=== PATIENT | male | born 1965 | race Caucasian/White ===

== ENCOUNTER 2017-02-13 23:59 | Emergency (ER) | payer OTHER ==
[~2017-02-13] VITALS: Ht 190.5 cm; Wt 133.8 kg
[~2017-02-13 23:59] MED LIST: ACETAMINOPHEN-1 EAC1 ORAL; ASPIR-LOW81 MG PO; ASPIRIN325 MG ORAL; CLINDAMYCIN HC300 MG ORAL; COLCHICINE0.6 MG ORAL; COUMADIN5 MG ORAL; FISH OIL500 M2 PO; FISH OIL500 MG PO; FUROSEMIDE20 M1 ORAL; IBUPROFEN600 MG ORAL; IMDUR60 MG ORAL; ISOSORBIDE DINI30 MG PO; LASIX20 MG PO; LISINOPRIL10 MG ORAL; LORTAB 5-500 T1 EACH PO; METOPROLOL TART25 MG ORAL; METOPROLOL TART50 MG PO; PEPCID40 MG PO; PERCOCET 5-3251 EACH ORAL; PLAVIX75 MG ORAL; PLAVIX75 MG PO; SIMVASTATIN20 MG PO; SIMVASTATIN40 MG ORAL; VALIUM10 MG ORAL; WARFARIN SODIUM5 MG ORAL
--- NOTE | 2017-02-14 00:42 | Emergency Room Report ---
History of Present Illness General Chief Complaint: Pain Source: Patient Present Illness HPI Patient presents with complaints of sharp shooting pain in both of his feet Reports the discomfort started on Monday while talking to the patient He had several episodes where he has a sharp pain that shoots from the lopez on the left foot down to the toes He feels that there is some minimal swelling in both of his ankles Denies any fevers or chills Denies any trauma Denies any chest pain or short of breath Allergies: Coded Allergies: TRAMADOL HCL (Verified Allergy, Severe, rash, 02/02/13) TRAMADOL (Unverified Allergy, 06/07/13) Patient History Past Medical History: see triage record Pertinent Family History: none Reviewed Nursing Documentation: PMH: Agreed, PSxH: Agreed Nursing Documentation-PMH Past Medical History: No History, Except For Hx Cardiac Problems: Yes - [place] TIMES 2 Hx Hypertension: No Hx Asthma: No Review of Systems All Other Systems: negative except mentioned in HPI Physical Exam Vital Signs Date Time Temp Pulse Resp B/P Pulse Ox O2 Delivery O2 Flow Rate FiO2 02/14/17 00:13 99.1 93 16 124/80 96 Room Air Sp02 EP Interpretation: reviewed, normal General Appearance: no apparent distress Head: normocephalic, atraumatic Eyes: bilateral eye EOMI, bilateral eye PERRL ENT: normal pharynx, no angioedema Neck: supple Respiratory: lungs clear Cardiovascular #1: regular rate, rhythm, no edema Gastrointestinal: non tender, soft Musculoskeletal: other - No obvious swelling clinically in the lower extremity , foot is warm to touch bilaterally, does not appear cool, palpable pulses are equal bilaterally dorsally on the feet, no obvious calf swelling or discomfort Neurologic: alert, oriented x3, responsive Skin: no rash, warm/dry Lymphatic: no adenopathy Medical Decision Making Diagnostic Impression: Primary Impression: Peripheral neuropathy ER Course Multiple differentials considered Including but not limited to vascular, electrolytes, infectious pathology Patient's potassium level is appropriate White blood cell count is mildly elevated patient however has had previous elevated white blood cell count as well No signs of any cellulitis at this time Patient did better with acute intervention Also appears to be likely borderline diabetic And requires close outpatient followup Labs Test 02/14/17 00:47 White Blood Count 16.2 K/UL (4.8-10.8) Red Blood Count 4.97 M/UL (4.70-6.10) Hemoglobin 15.2 G/DL (14.2-18.0) Hematocrit 44.0 % (42.0-52.0) Mean Corpuscular Volume 89 FL (80-99) Mean Corpuscular Hemoglobin 30.6 PG (27.0-31.0) Mean Corpuscular Hemoglobin Concent 34.5 G/DL (32.0-36.0) Red Cell Distribution Width 12.4 % (11.6-14.8) Platelet Count 266 K/UL (150-450) Mean Platelet Volume 6.3 FL (6.5-10.1) Neutrophils (%) (Auto) 64.1 % (45.0-75.0) Lymphocytes (%) (Auto) 27.7 % (20.0-45.0) Monocytes (%) (Auto) 6.0 % (1.0-10.0) Eosinophils (%) (Auto) 1.2 % (0.0-3.0) Basophils (%) (Auto) 1.0 % (0.0-2.0) Sodium Level 136 mEQ/L (135-145) Potassium Level 4.1 mEQ/L (3.4-4.9) Chloride Level 96 mEQ/L (98-107) Carbon Dioxide Level 22 mEQ/L (20-30) Anion Gap 18 (5-15) Blood Urea Nitrogen 16 mg/dL (7-23) Creatinine 1.4 mg/dL (0.7-1.2) Estimat Glomerular Filtration Rate 53.9 mL/min (>60) Glucose Level 206 mg/dL (74-106) Calcium Level 9.3 mg/dL (8.6-10.2) Total Bilirubin < 0.2 mg/dL (0.0-1.2) Aspartate Amino Transf (AST/SGOT) 13 U/L (5-40) Alanine Aminotransferase (ALT/SGPT) 17 U/L (3-41) Alkaline Phosphatase 87 U/L (40-129) Total Protein 7.2 g/dL (6.6-8.7) Albumin 4.1 g/dL (3.5-5.2) Globulin 3.1 g/dL Albumin/Globulin Ratio 1.3 (1.0-2.7) Last Vital Signs Date Time Temp Pulse Resp B/P Pulse Ox O2 Delivery O2 Flow Rate FiO2 02/14/17 00:13 99.1 93 16 124/80 96 Room Air Status: improved Disposition: HOME, SELF-CARE Condition: Improved Scripts Gabapentin* (NEURONTIN*) 600 Mg Tablet 600 MG ORAL EVERY 12 HOURS, #12 TAB Prov: CELESTE NGUYEN D.O. 02/14/17 Acetaminophen With Codeine (T#3) (TYLENOL #3 TAB*) Y Tab 1 TAB ORAL Q8H Y for For Pain, #10 TAB Prov: CELESTE NGUYEN D.O. 02/14/17 Additional Instructions: Patient is provided with the discharge instructions notified to follow up with primary doctor in the next 2-3 days otherwise return to the er with any worsening symptoms. Please note that this report is being documented using [employer] technology. This can lead to erroneous entry secondary to incorrect interpretation by the dictating instrument. CELESTE NGUYEN D.O. Feb 14, 2017 00:42
[2017-02-14] MEDS ORDERED: Norco 10mg/325mg tab ORAL ONE (00:45)
[2017-02-14 01:12] LABS: EOSINOPHILS % (AUTO) 1.2 % (0.0-3.0); LYMPHOCYTES % (AUTO) 27.7 % (20.0-45.0); MEAN CORPUSCULAR HEMOGLOBIN 30.6 PG (27.0-31.0); MEAN CORPUSCULAR HGB CONC 34.5 G/DL (32.0-36.0); MEAN CORPUSCULAR VOLUME 89 FL (80-99); MEAN PLATELET VOLUME 6.3 FL (6.5-10.1); NEUTROPHILS % (AUTO) 64.1 % (45.0-75.0); PLATELET COUNT 266 K/UL (150-450); RED BLOOD COUNT 4.97 M/UL (4.70-6.10); RED CELL DISTRIBUTION WIDTH 12.4 % (11.6-14.8); WHITE BLOOD COUNT 16.2 K/UL (4.8-10.8)
[2017-02-14 01:33] LABS: ALANINE AMINOTRANSFERASE 17 U/L (3-41); ALBUMIN/GLOBULIN RATIO 1.3 (1.0-2.7); ANION GAP 18 (5-15); CALCIUM 9.3 mg/dL (8.6-10.2); CARBON DIOXIDE 22 mEQ/L (20-30); CHLORIDE 96 mEQ/L (98-107); CREATININE 1.4 mg/dL (0.7-1.2); GLOMERULAR FILTRATION RATE 53.9 mL/min (>60); HEMOLYSIS 18; POTASSIUM 4.1 mEQ/L (3.4-4.9); SODIUM 136 mEQ/L (135-145); TOTAL PROTEIN 7.2 g/dL (6.6-8.7)
[2017-02-14 01:42] LABS: ASPARTATE AMINO TRANSFERASE 13 U/L (5-40)
[2017-02-14 02:05] VITALS: BP 149/95
[2017-02-14] MEDS ORDERED: ACETAMINOPHEN-1 EAC1 ORAL (02:11)
[2017-02-14] MEDS ORDERED: NEURONTIN600 MG ORAL (02:11)
[2017-02-14 03:02] VITALS: BP 149/95
== END 2017-02-14 03:04 | disposition home or self-care (01) ==
LOC: EMR 02-14 01:56
DX: G62.9 Polyneuropathy, unspecified (principal); M25.571 Pain in right ankle and joints of right foot; Z88.6 Allergy status to analgesic agent; I25.2 Old myocardial infarction
CPT/HCPCS: 36415; 80053; 85025; 99284

== ENCOUNTER 2018-03-19 04:29 | Emergency (ER) | payer OTHER ==
[~2018-03-19] VITALS: Ht 190.5 cm; Wt 136.1 kg
[~2018-03-19 04:29] MED LIST changes: +NEURONTIN600 MG ORAL
[2018-03-19] MEDS ORDERED: DiphenhydrAMINE 50mg/ml Inj IVP ONE (05:00)
[2018-03-19] MEDS ORDERED: Metoclopramide 10mg/2ml Inj IVP ONE (05:00)
[2018-03-19] MEDS ORDERED: Ketorolac 30mg Inj IV ONE (05:00)
[2018-03-19 06:09] LABS: BASOPHILS % (AUTO) 0.7 % (0.0-2.0); EOSINOPHILS % (AUTO) 2.2 % (0.0-3.0); HEMATOCRIT 46.6 % (42.0-52.0); LYMPHOCYTES % (AUTO) 31.4 % (20.0-45.0); MEAN CORPUSCULAR VOLUME 88 FL (80-99); MONOCYTES % (AUTO) 7.3 % (1.0-10.0); NEUTROPHILS % (AUTO) 58.5 % (45.0-75.0); PLATELET COUNT 283 K/UL (150-450); RED BLOOD COUNT 5.27 M/UL (4.70-6.10); RED CELL DISTRIBUTION WIDTH 12.1 % (11.6-14.8); WHITE BLOOD COUNT 12.9 K/UL (4.8-10.8)
[2018-03-19 06:21] LABS: ANION GAP 10 mmol/L (5-15); BLOOD UREA NITROGEN 18 mg/dL (7-18); CARBON DIOXIDE 26 MMOL/L (21-32); CHLORIDE 102 MMOL/L (98-107); CREATININE 1.6 MG/DL (0.55-1.30); POTASSIUM 4.2 MMOL/L (3.5-5.1); SODIUM 138 MMOL/L (136-145)
[2018-03-19 06:22] LABS: INR 0.9 (0.9-1.1)
[2018-03-19 06:32] LABS: ALANINE AMINOTRANSFERASE 36 U/L (12-78); ALBUMIN/GLOBULIN RATIO 1.1 (1.0-2.7); ALKALINE PHOSPHATASE 68 U/L (46-116); ASPARTATE AMINO TRANSFERASE 12 U/L (15-37); BILIRUBIN,TOTAL 0.3 MG/DL (0.2-1.0); CREATINE KINASE 70 U/L (26-308)
--- NOTE | 2018-03-19 06:37 | Emergency Room Report ---
History of Present Illness General Chief Complaint: Headache Source: Patient Present Illness HPI Patient presents with 2 weeks of left-sided headache. He feels it in the yazidism area. It's severe at this time. He was evaluated in [address] of his head. He doesn't remember if it was for headache. The pain is 10/10, throbbing, some radiation towards L eye and neck, constant. He wants to cut that area of his head out with a knife. The patient has chronic pain condition. He took at 10/325 Cushing at 7:30 PM. Apparently this is the last Cushing that he had. Denies fever, sore throat, change in vision, diarrhea. He has some nausea but no vomiting. No rashes (some sunburn to scalp). No chest pain, dyspnea, cough. No dysuria. He had chronic pain in his neck and back and is in pain management. Patient is diabetic and states glucose has been fairly well controlled. Allergies: Coded Allergies: TRAMADOL HCL (Verified Allergy, Severe, rash, 02/02/13) KETOROLAC (Verified Allergy, Unknown, 03/19/18) hives TRAMADOL (Unverified Allergy, Unknown, 03/19/18) Patient History Past Medical History: see triage record Social History: Reports: smoking Social History Narrative from home Reviewed Nursing Documentation: PMH: Agreed; PSxH: Agreed Nursing Documentation-PMH Hx Cardiac Problems: Yes - [place] TIMES 2 Hx Hypertension: No Hx Asthma: No Hx Diabetes: Yes Review of Systems All Other Systems: negative except mentioned in HPI Physical Exam Vital Signs Date Time Temp Pulse Resp B/P (MAP) Pulse Ox O2 Delivery O2 Flow Rate FiO2 03/19/18 04:33 98.5 100 18 117/75 98 Room Air 98.4 Sp02 EP Interpretation: reviewed, normal General Appearance: well appearing, no apparent distress, GCS 15 Head: normocephalic, other - L temporal area tenderness Eyes: bilateral eye normal inspection, bilateral eye PERRL, bilateral eye EOMI ENT: moist mucus membranes Neck: supple Respiratory: lungs clear, normal breath sounds Cardiovascular #1: regular rate, rhythm, other - Tender temporal area Cardiovascular #2: 2+ radial (R) Gastrointestinal: normal inspection, normal bowel sounds, non tender, no mass, non-distended Musculoskeletal: back normal, gait/station normal, normal range of motion Neurologic: alert, oriented x3, wet end supervisor III-XII nml as tested, motor strength/tone normal, DTRs symmetric, sensory intact, cerebellar normal, normal gait, speech normal Psychiatric: anxious - Pressured Skin: normal inspection, warm/dry Lymphatic: normal inspection Medical Decision Making Diagnostic Impression: Primary Impression: Cephalgia Qualified Codes: R51 - Headache Additional Impression: Diabetes Qualified Codes: E11.8 - Type 2 diabetes mellitus with unspecified complications ER Course Patient presents with headache and left temporal pain. Differential includes temporal arteritis, migraine, tension headache, opiate dependence amongst others. Patient has comorbidities and evaluation will be with EKG, chest x-ray and labs including sedimentation rate. His exam is nonfocal at this time. It is been 13 days. He has a previous CAT scan in 2013 that was normal. Patient observed drifting off to sleep after initial treatment. EKG with NSSTTW changes c/w LVH. Labs with sl elevated WBC and normal ESR. Glucose slightly elevated. Discussed possibility of CT with Dr. Calix. Signed out to Dr. Calix. Laboratory Tests Test 03/19/18 05:45 03/19/18 06:02 White Blood Count 12.9 K/UL (4.8-10.8) H Red Blood Count 5.27 M/UL (4.70-6.10) Hemoglobin 16.0 G/DL (14.2-18.0) Hematocrit 46.6 % (42.0-52.0) Mean Corpuscular Volume 88 FL (80-99) Mean Corpuscular Hemoglobin 30.3 PG (27.0-31.0) Mean Corpuscular Hemoglobin Concent 34.3 G/DL (32.0-36.0) Red Cell Distribution Width 12.1 % (11.6-14.8) Platelet Count 283 K/UL (150-450) Mean Platelet Volume 6.4 FL (6.5-10.1) L Neutrophils (%) (Auto) 58.5 % (45.0-75.0) Lymphocytes (%) (Auto) 31.4 % (20.0-45.0) Monocytes (%) (Auto) 7.3 % (1.0-10.0) Eosinophils (%) (Auto) 2.2 % (0.0-3.0) Basophils (%) (Auto) 0.7 % (0.0-2.0) Erythrocyte Sedimentation Rate 12 MM/HR (0-15) Prothrombin Time 9.7 SEC (9.30-11.50) Prothrombin Time INR 0.9 (0.9-1.1) PTT 25 SEC (23-33) Sodium Level 138 MMOL/L (136-145) Potassium Level 4.2 MMOL/L (3.5-5.1) Chloride Level 102 MMOL/L (98-107) Carbon Dioxide Level 26 MMOL/L (21-32) Anion Gap 10 mmol/L (5-15) Blood Urea Nitrogen 18 mg/dL (7-18) Creatinine 1.6 MG/DL (0.55-1.30) H Estimate Glomerular Filtration Rate 46.0 mL/min (>60) Glucose Level 283 MG/DL (74-106) H Calcium Level 9.0 MG/DL (8.5-10.1) Total Bilirubin 0.3 MG/DL (0.2-1.0) Aspartate Amino Transferase (AST) 12 U/L (15-37) L Alanine Aminotransferase (ALT) 36 U/L (12-78) Alkaline Phosphatase 68 U/L (46-116) Total Creatine Kinase 70 U/L (26-308) Troponin I 0.000 ng/mL (0.000-0.056) Pro-B-Type Natriuretic Peptide 88 pg/mL (0-125) Total Protein 7.7 G/DL (6.4-8.2) Albumin 4.0 G/DL (3.4-5.0) Globulin 3.7 g/dL Albumin/Globulin Ratio 1.1 (1.0-2.7) Urine Color Pale yellow Urine Appearance Clear Urine pH 5 (4.5-8.0) Urine Specific [place] 1.015 (1.005-1.035) Urine Protein Negative (NEGATIVE) Urine Glucose (UA) 4+ (NEGATIVE) H Urine Ketones Negative (NEGATIVE) Urine Occult Blood Negative (NEGATIVE) Urine Nitrite Negative (NEGATIVE) Urine Bilirubin Negative (NEGATIVE) Urine Urobilinogen Normal MG/DL (0.0-1.0) Urine Leukocyte Esterase Negative (NEGATIVE) Urine Opiates Screen Positive (NEGATIVE) H Urine Barbiturates Screen Negative (NEGATIVE) Phencyclidine (PCP) Screen Negative (NEGATIVE) Urine Amphetamines Screen Negative (NEGATIVE) Urine Benzodiazepines Screen Negative (NEGATIVE) Urine Cocaine Screen Negative (NEGATIVE) Urine Marijuana (THC) Screen Negative (NEGATIVE) EKG Diagnostic Results Rate: normal Rhythm: NSR ST Segments: other - LVH Rhythm Strip Diag. Results EP Interpretation: yes Rhythm: NSR, no PVC's, no ectopy Chest X-Ray Diagnostic Results Chest X-Ray Diagnostic Results : Chest X-Ray Ordered: Yes # of Views/Limited/Complete: 1 View Indication: Other EP Interpretation: Yes Interpretation: no consolidation, no effusion, no pneumothorax Impression: Other Electronically Signed by: Electronically signed by Tiburcio Barry MD Last Vital Signs Date Time Temp Pulse Resp B/P (MAP) Pulse Ox O2 Delivery O2 Flow Rate FiO2 03/19/18 08:58 78 18 124/79 100 Room Air 03/19/18 07:50 98.5 Status: improved Disposition: HOME, SELF-CARE Condition: Improved Scripts Acetamin/Butalbital/Caffeine* (FIORICET*) 1 Ea Tab 1 TAB ORAL Q6H, #15 TAB 0 Refills Prov: Contreras Calix MD 03/19/18 Referrals: [facility],REFERRING (PCP) Tiburcio Barry M.D. Mar 19, 2018 06:37
[2018-03-19 06:56] LABS: APPEARANCE,URINE CLEAR; BILIRUBIN, URINE NEGATIVE (NEGATIVE); COLOR,URINE PALE YELLOW; GLUCOSE, URINE (UA) 4+ (NEGATIVE); KETONES,URINE NEGATIVE (NEGATIVE); LEUKOCYTE ESTERASE ,URINE NEGATIVE (NEGATIVE); NITRITE,URINE NEGATIVE (NEGATIVE); PH,URINE 5 (4.5-8.0); PROTEIN,URINE NEGATIVE (NEGATIVE); UROBILINOGEN,URINE NORMAL MG/DL (0.0-1.0)
[2018-03-19] MEDS ORDERED: Morphine Sulfate 4mg/ml Inj (IV USE ONLY) IVP ONE (07:15)
[2018-03-19 08:58] VITALS: BP 124/79
--- NOTE | 2018-03-19 09:13 | Diagnostic Imaging Report ---
Indication: Headache left-sided for 2 weeks Technique: Continuous helical CT scanning of the head was performed without intravenous contrast material. Axial and coronal 5 mm sections were generated. Radiation dose was minimized using automated exposure control Dose: Total Dose Length Product - DLP 1432.[address] Dose Index - CTDIvol(s) 70.38 mGy. Comparison: 12/21/2013 Findings: The ventricular system is normal in size and configuration. There is no shift of midline structures. No abnormal extra-axial fluid collections are noted. There is no evidence of intracerebral bleeding. No other abnormal high or low density areas are noted within the brain. Intact calvarium. It lies orbits and sinuses are unremarkable. Impression: Normal CT scan of the head without contrast material. Findings discussed by phone with Dr. Calix at 9:[address] scanner at [facility] is accredited by the [employer] and the scans are performed using protocols designed to limit radiation exposure to as low as reasonably achievable to attain images of sufficient resolution adequate for diagnostic evaluation.
[2018-03-19] MEDS ORDERED: FIORICET1 EA ORAL (09:16)
[2018-03-19 09:30] VITALS: BP 119/72
--- NOTE | 2018-03-19 12:28 | Diagnostic Imaging Report ---
Indication: Chest pain Technique: One view of the chest Comparison: 02/08/2009 Findings: The heart size is upper limits of normal. The aorta is tortuous. Lungs and pleural spaces are clear. Impression: No acute process
--- NOTE | 2018-03-23 16:28 | Cardiology Report ---
APPROVED REPORT EKG Measurement Heart [id number] Normal sinus rhythm Left ventricular hypertrophy with QRS widening Lateral infarct, age undetermined Inferior infarct, age undetermined Abnormal ECG
== END 2018-03-19 09:30 | disposition home or self-care (01) ==
LOC: EMR 04:44
DX: R51 Headache (principal); E11.8 Type 2 diabetes mellitus with unspecified complications; F17.200 Nicotine dependence, unspecified, uncomplicated; I25.2 Old myocardial infarction; Z88.6 Allergy status to analgesic agent
CPT/HCPCS: 36415; 70450; 71045; 80053; 80307; 81003; 82550; 83880; 84484; 85025; 85610; 85651; 85730; 93005; 99284; J2270; J2765